=== PATIENT | female | born 1950 | race Caucasian/White ===

== ENCOUNTER 2017-12-07 10:24 | Day surgery (SDC) | payer MEDICARE, BC ==
[2017-12-07] MEDS ORDERED: PROPOFOL 10 MG/ML VIAL IV ONE (10:25)
[2017-12-07] MEDS ORDERED: LIDOCAINE 2% MDV (20MG/ML) 20ML VIAL IV ONE (10:25)
--- NOTE | 2017-12-08 10:40 | Operative Note ---
DATE OF SURGERY: 12/07/2017 OPERATION: COLONOSCOPY to the cecum with cold biopsy forceps polypectomy x1 and electrocautery snare polypectomy x2 and random colon biopsies. INDICATION: Chronic diarrhea. The patient claiming up to 15 loose watery stools daily but no nocturnal stooling and a positive Cologuard test. The patient presents today for the first time for a colonoscopy. ANESTHESIA: Intravenous sedation was administered by the department of anesthesiology and included Diprivan titrated to effect. PROCEDURE: Following informed consent from this alert individual including a discussion of the risks and benefits of the procedure and an opportunity for the patient to ask questions, the patient was in the left lateral decubitus position. A digital rectal examination was performed. No abnormalities were noted. Following this, the Olympus [id number] video colonoscope was inserted into the rectum without resistance. The rectal mucosa had a normal appearance with normal folds and distensibility. In the sigmoid colon, there was a pedunculated polyp with the head measuring approximately 10 mm across. It was initially traversed. The colonoscope was then further advanced up through the bowel to the level of the cecum without much difficulty. Throughout the remainder of the bowel, the mucosa appeared normal, the folds were normal, and the bowel was fairly well distensible. The colon preparation was adequate. The cecum was well defined by noting the appendiceal orifice and ileocecal valve. The terminal ileum was cannulated for approximately 10 cm and found to be normal. From the base of the cecum, the colonoscope was then withdrawn. In the ascending colon there were 2 polyps noted. The larger measuring 7-8 mm in size and was removed with electrocautery snare polypectomy and suctioned through the colonoscope into a collection trap. There was a small 3 mm polyp noted in this area removed with biopsy forceps. The colonoscope was then further withdrawn. Random biopsies were taken from the right colon and left colon upon withdrawal to evaluate for possible microscopic colitis. The colonoscope was then further withdrawn to the sigmoid colon where the large pedunculated polyp was again noted. Utilizing electrocautery snare polypectomy, the polyp was removed in the usual manner. A white eschar was noted. There was no bleeding. The colonoscope was further withdrawn back into a healthy appearing rectum. Retroflexion accomplished following air insufflation failed to demonstrate any pathology. The endoscope was straightened and removed. The patient tolerated the procedure well and was returned to the recovery area in stable condition. IMPRESSION: 1. Normal terminal ileum. 2. Sessile 7-8 mm polyp along the fold removed with electrocautery snare polypectomy. 3. A 3 mm ascending colon polyp removed with biopsy forceps. 4. A pedunculated 10 mm sigmoid polyp removed with electrocautery snare polypectomy. 5. Random colon biopsies taken from the right and left colon. RECOMMENDATIONS: Further recommendations will be forthcoming pending results of pathology obtained today. The patient will be following up with Jack Katz DO as well. As always, thank you for allowing me to participate in the care of your patient. CC: DO TATYANA Mc
== END 2017-12-07 12:50 | disposition home or self-care (01) ==
LOC: HOP 10:24
PROVIDERS: ATTEND Internal Medicine Gastroenterology
DX: K52.9 Noninfective gastroenteritis and colitis, unspecified (principal); D12.2 Benign neoplasm of ascending colon; D12.5 Benign neoplasm of sigmoid colon; I10 Essential (primary) hypertension; E78.00 Pure hypercholesterolemia, unspecified; E03.9 Hypothyroidism, unspecified; J44.9 Chronic obstructive pulmonary disease, unspecified